=== PATIENT | female | born 1985 | race Caucasian/White ===

== ENCOUNTER 2017-05-25 14:41 | Emergency (ER) | payer OTHER ==
[~2017-05-25 14:41] MED LIST: ACE3 PO; ALBU2.5V36 IH; BIRTH CONTROL; DIAZ-308 PO; ERYT400T73 PO; ETHI1TAB26 PO; GUAI-545 PO; GUAI-645 PO; HYDR-6016 PO; IBU200 PO; IBU800 PO; LEV500 PO; LOR5 PO; METH0.2T PO; NAPR500T75 PO; ONDA4TAB PO; ONDA4TAB97 PO; PER PO; PNV; PRE20 PO; PREN-85 PO; ROBC PO; TRAM-627 PO; VITAMINS
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
[2017-05-25 14:45] VITALS: BP 126/85
[2017-05-28] MEDS ORDERED: FLUT16SP19 NS (16:33)
[2017-05-28] MEDS ORDERED: AMOX-559 PO (16:33)
== END 2017-05-25 15:04 | disposition home or self-care (01) ==
LOC: ER 14:42
DX: Z77.21 Contact with and (suspected) exposure to potentially hazardous body fluids (principal)
CPT/HCPCS: 80305; 99282

== ENCOUNTER 2018-10-28 17:00 | Emergency (ER) | payer OTHER ==
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
[~2018-10-28 17:00] MED LIST changes: +AMOX-559 PO; +FLUT16SP19 NS; +LEVO1TAB75 PO; +NORE0.3536 PO; +SUMA50TA34 PO
[2018-10-28] MEDS ORDERED: DIPHTH/TETANUS/ACEL. PERTUSSIS IM ONLY ONE (17:10)
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
[2018-10-28 18:00] VITALS: BP 131/76
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
[2018-10-28] MEDS ORDERED: KETOROLAC 30 MG/ML VIAL IVP ONE (18:25)
== END 2018-10-28 18:45 | disposition home or self-care (01) ==
LOC: ER 17:08
DX: S01.111A Laceration without foreign body of right eyelid and periocular area, initial encounter (principal)
CPT/HCPCS: 12011; 90471; 90715; 96374; 99284; J1885; 70450; 70486; 72125